=== PATIENT | female | born 2000 | race Caucasian/White ===

== ENCOUNTER 2020-06-10 20:15 | Emergency (ER) | payer OTHER ==
[~2020-06-10] VITALS: Ht 165.1 cm; Wt 68.0 kg
[2020-06-10 20:27] VITALS: BP 115/75
[2020-06-10 21:04] VITALS: BP 115/75
== END 2020-06-10 21:04 | disposition home or self-care (01) ==
LOC: MED 20:15
DX: U07.1 COVID-19 (principal); J45.909 Unspecified asthma, uncomplicated; Z88.8 Allergy status to other drugs, medicaments and biological substances
CPT/HCPCS: 99283; U0003